=== PATIENT | male | born 1960 | race Caucasian/White ===

== ENCOUNTER 2021-03-18 08:14 | Outpatient (RCR) | payer MEDICARE, MEDICAID, SELFPAY | END 2021-03-26 23:59 | disposition home or self-care (01) | LOC: SST 08:14 | PROVIDERS: PCP Nurse Practitioner Family; Referring Provider Nurse Practitioner Family; Visit Provider Nurse Practitioner Family | DX: G80.0 Spastic quadriplegic cerebral palsy (principal); R47.01 Aphasia | CPT/HCPCS: 92607; 92608 ==